=== PATIENT | female | born 1940 | race Caucasian/White ===

== ENCOUNTER 2022-09-27 18:32 | Inpatient (IN) | payer OTHER, MEDICARE ==
[~2022-09-27] VITALS: Ht 170.2 cm; Wt 65.8 kg
[2022-09-27 18:39] VITALS: BP_SYST 120
--- NOTE | 2022-09-27 18:44 | NUR ---
PT WAS B/B AMBULANCE FROM HOME FOR GENERALIZED WEAKNESS. PER SON, PT USUALLY ABLE TO WALK BUT SHE CAN'T WALK RECENTLY. PT ALERT, ORIENTED TO HER NAME ONLY, OTHERWISE CONFUSED. PT LOOKS LIKE WEAKNESS. SLIGHTLY CONGESTED. O2 SAT 77% IN RA. NC @3 SUPPLIED, MORNITOR ON.
[2022-09-27] MEDS ORDERED: ALBUTEROL SULFATE 0.083% 2.5 MG/3 ML VIAL.NEB INH ONE ×2 (19:14→20:00)
--- NOTE | 2022-09-27 19:31 | NUR ---
RECEIVED IN BED , ON FACE MASK , BP 149/90, HR98, RR26, O2SAT 93%,WILL CONTINUE TO MONITOR
[2022-09-27] MEDS ORDERED: FUROSEMIDE 40 MG/4 ML VIAL IVP ONE (19:45)
[2022-09-27] MEDS ORDERED: NS 250 ML IV ONE (19:45)
--- NOTE | 2022-09-27 20:15 | NUR ---
PATIENT OFF UNIT FOR CT HEAD
--- NOTE | 2022-09-27 20:16 | NUR ---
PATIENT BACK FROM CT
[2022-09-27 20:27] LABS: BASOPHILS # (AUTO) 0.1 K/uL (0.0-0.2); BASOPHILS % (AUTO) 0.8 % (0.0-2.0); EOSINOPHILS % (AUTO) 0.2 % (0.0-4.0); HEMATOCRIT 42.7 % (36-48); HEMOGLOBIN 14.1 g/dL (12.0-16.0); LYMPHOCYTES # (AUTO) 0.8 K/uL (1.0-5.5); LYMPHOCYTES % (AUTO) 6.9 % (20.5-51.5); MEAN CORPUSCULAR HEMOGLOBIN 31 pg (27-31); MEAN CORPUSCULAR HGB CONC 33 % (32-36); MEAN CORPUSCULAR VOLUME 93 fL (79.0-98.0); MONOCYTES # (AUTO) 0.5 K/uL (0.0-1.0); MONOCYTES % (AUTO) 4.6 % (1.7-9.3); NEUTROPHILS # (AUTO) 9.7 K/uL (1.8-7.7); NEUTROPHILS % (AUTO) 87.5 % (40.0-70.0); PLATELET COUNT (AUTO) 185 K/uL (130-430); RED BLOOD CELL COUNT(AUTO) 4.61 MIL/uL (4.2-6.2); RED CELL DISTRIBUTION WIDTH 15.8 % (9.0-15.0); WHITE BLOOD COUNT (AUTO) 11.1 K/uL (4.8-10.8)
[2022-09-27 20:33] LABS: ANION GAP 7 (5-15); CALCIUM 8.6 mg/dL (8.4-11.0); CHLORIDE 105 mmol/L (98-107); GLUCOSE 157 mg/dL (70-99); UREA NITROGEN, BLOOD 13 mg/dL (8-21)
[2022-09-27 20:46] LABS: ALANINE AMINOTRANSFERASE 16 U/L (12-78); ALBUMIN 3.5 g/dL (3.4-4.8); ASPARTATE AMINOTRANSFERASE 18 U/L (10-37); THYROID STIMULATING HORMONE 4.59 uIu/mL (0.34-4.82); TOTAL BILIRUBIN 0.8 mg/dL (0.0-1.0)
[2022-09-27] MEDS ORDERED: cefTRIAXone 2 GM VIAL ONE (20:46)
[2022-09-27] MEDS ORDERED: levETIRAcetam 1,000 MG IV BAG 100 ML IV ONE (21:00)
[2022-09-27] MEDS ORDERED: DEXAMETHASONE SOD PHOSPHATE 10 MG/ML VIAL IVP ONE (21:00)
[2022-09-27] MEDS ORDERED: MANNITOL 25% 12.5GM/50 ML VIAL IVP ONE (21:15)
[2022-09-27] MEDS ORDERED: ONDANSETRON HCL 4 MG/2 ML VIAL IVP PRN (23:00)
[2022-09-27 23:54] VITALS: BP_SYST 104
[2022-09-28 00:05] LABS: INR 1.1 (0.8-1.2); PROTHROMBIN TIME 11.4 SECS (9.5-12.5)
--- NOTE | 2022-09-28 02:00 | NUR ---
ROUNDS PATIENT IN BED, RESTING, EYES CLOSED, NO S/S OF ACUTE DISTRESS. BREATHING EVEN AND UNLABORED, HOB RAISED, NRB MASK ATTACHED PROPERLY ON 15L OF OXYGEN. BED ALARM ON. WILL CONTINUE TO MONITOR.
[2022-09-28] MEDS ORDERED: KCL 20 mEq in D5/0.45NS 1000mL 1,000 ML IV ONE (02:04)
[2022-09-28 02:19] VITALS: BP_SYST 104
[2022-09-28] MEDS: KCL 20 mEq in D5/0.45NS 1000mL 1,000 ML IV SCH ×3 (02:33→16:41)
--- NOTE | 2022-09-28 05:30 | NUR ---
INCONTINENT CARE PATIENT CLEANED BY NEUROPSYCHIATRIST. ALL NEEDS MET. WILL CONTINUE TO MONITOR .
--- NOTE | 2022-09-28 06:17 | NUR ---
CLOSING NOTE PATIENT IN BED, RESTING, NO S/S OF ACUTE DISTRESS NOTED. BREATHING IS EVEN AND UNLABORED. HOB RAISED, NRB MASK ATTACHED PROPERLY, ON 15L OF OXYGEN. IVF INFUSING WELL, IV SITE IS PATENT, NO SIGNS OF INFILTRATION OR INFECTION NOTED. ALL NEEDS MET THROUGHOUT SHIFT. FALL, SAFETY PRECAUTIONS MAINTAINED THROUGHOUT SHIFT. WILL CONTINUE TO MONITOR UNTIL PATIENT CARE IS ENDORSED TO ONCOMING DAYSHIFT NURSE.
[2022-09-28 06:42] LABS: BASOPHILS # (AUTO) 0.1 K/uL (0.0-0.2); BASOPHILS % (AUTO) 0.5 % (0.0-2.0); HEMATOCRIT 43.5 % (36-48); HEMOGLOBIN 14.2 g/dL (12.0-16.0); LYMPHOCYTES # (AUTO) 0.5 K/uL (1.0-5.5); LYMPHOCYTES % (AUTO) 4.1 % (20.5-51.5); MEAN CORPUSCULAR HEMOGLOBIN 30 pg (27-31); MEAN CORPUSCULAR HGB CONC 33 % (32-36); MEAN CORPUSCULAR VOLUME 93 fL (79.0-98.0); MONOCYTES # (AUTO) 0.9 K/uL (0.0-1.0); MONOCYTES % (AUTO) 7.6 % (1.7-9.3); NEUTROPHILS % (AUTO) 87.8 % (40.0-70.0); PLATELET COUNT (AUTO) 192 K/uL (130-430); RED BLOOD CELL COUNT(AUTO) 4.69 MIL/uL (4.2-6.2); RED CELL DISTRIBUTION WIDTH 15.7 % (9.0-15.0); WHITE BLOOD COUNT (AUTO) 12.5 K/uL (4.8-10.8)
[2022-09-28 07:09] LABS: ANION GAP 11 (5-15); CALCIUM 8.9 mg/dL (8.4-11.0); CHLORIDE 102 mmol/L (98-107); CREATININE 0.64 mg/dL (0.55-1.30); GLUCOSE 123 mg/dL (70-99); UREA NITROGEN, BLOOD 13 mg/dL (8-21)
[2022-09-28 08:00] VITALS: BP_SYST 114
[2022-09-28] MEDS: PANTOPRAZOLE SODIUM 40 MG/VIAL (PROTONIX) IVP SCH ×2 (09:22→20:45)
[2022-09-28 09:31] LABS: INR 1.1 (0.8-1.2); PROTHROMBIN TIME 11.3 SECS (9.5-12.5)
[2022-09-28] MEDS ORDERED: POTA-197 PO (10:44)
[2022-09-28] MEDS ORDERED: MEMA10TA PO (10:44)
[2022-09-28] MEDS ORDERED: MULT-1089 PO (10:44)
[2022-09-28] MEDS ORDERED: DONE10TA44 PO (10:44)
[2022-09-28] MEDS ORDERED: APIX2.5T PO (10:44)
[2022-09-28 11:46] VITALS: BP_SYST 104
[2022-09-28 16:41] VITALS: BP_SYST 109
--- NOTE | 2022-09-28 17:25 | NUR ---
pt remained nonverbal all day, ivf at 75ml/hr, iv was infiltrated and restarted to left arm. pt incontinent, skin washed, and kept clean and dry. turned pt q 2 hrs. all needs anticpated and met. sister at the bedside, updated on pt's condition. Dr Rebollar at the bedside at 10am, updated sister. orders noted and carried out. oral care provided.
--- NOTE | 2022-09-28 19:25 | NUR ---
Opening note Received resting in bed, eyes closed. Deep breaths noted, on Venturi mask at 35%. IVF infusing via IV to left hand. Bed is locked in lowest position, side rails up 3x, bed alarm on and call light w/in reach.
[2022-09-28 20:00] VITALS: BP_SYST 107
--- NOTE | 2022-09-28 20:50 | NUR ---
Med Scheduled med, Protonix, administered IVP as ordered. Patient provided with SCD's. Safety precautions in place.
[2022-09-28 22:39] VITALS: BP_SYST 111
--- NOTE | 2022-09-29 02:00 | NUR ---
rounds, patient care Patient had BM. She was provided with bed bath, pericare, new pad and linen.
[2022-09-29 02:45] VITALS: BP_SYST 126
--- NOTE | 2022-09-29 02:53 | NUR ---
Desaturating Patient continues to have deep respiration; now with lung sounds wet and gurgle. Desaturating SpO2 is 58%, RT increased Venturi to 50% and little improvement - 66%. RT performed Naso suction and connected her to NRB and presently saturation is 73% B/P 126/73, HR 92, resp 24 and 97.3 temporal scan. Latest oxygen saturation level is 86%.
[2022-09-29] MEDS: KCL 20 mEq in D5/0.45NS 1000mL 1,000 ML IV SCH ×2 (06:51→13:20)
--- NOTE | 2022-09-29 06:53 | NUR ---
Dr. Rebollar S/W Dr. Rebollar and updated on patient's status regarding saturation; Desaturated (now on NRB, at one point 93% and now sating at 84%). He provided new orders for IV fluid rate (50ml/hr).
[2022-09-29 08:00] VITALS: BP_SYST 124
--- NOTE | 2022-09-29 08:00 | NUR ---
Initial notes Not responding, on non rebreather mask at 15L, o2 sat from 87-91%. Sinus on the monitor. Repositioned for comfort.
[2022-09-29] MEDS: PANTOPRAZOLE SODIUM 40 MG/VIAL (PROTONIX) IVP SCH ×2 (08:17→22:45)
--- NOTE | 2022-09-29 11:00 | NUR ---
Notes- O2 sat is at 80% on mask, spoke to and made aware, MD said no need to put bipap, Respiratory therapist aware.
[2022-09-29 11:28] VITALS: BP_SYST 133
[2022-09-29] MEDS ORDERED: NALOXONE HCL 0.4 MG/ML AMP (NARCAN) IVP PRN (14:45)
--- NOTE | 2022-09-29 14:50 | NUR ---
MD ROUNDS Seen by Dr Rebollar and spoke to family at bedside. MD ordered morphine for comfort measures.
[2022-09-29] MEDS: MORPHINE 2 MG/ML INJ. SYRINGE IVP PRN ×3 (15:00→22:48)
[2022-09-29] MEDS: LevALBUTEROL HCL 1.25 MG/0.5 ML *CONC.* VIAL.NEB (XOPENEX CONC.) INH SCH ×2 (15:25→19:00)
[2022-09-29 15:27] VITALS: BP_SYST 143
--- NOTE | 2022-09-29 18:45 | NUR ---
closing notes Not responsive, o2 sat at 75%. family at bedside. patient is is comfort care. will endorse.
[2022-09-29 20:00] VITALS: BP_SYST 120
--- NOTE | 2022-09-30 00:15 | NUR ---
Patient non verbal Respirations are absent PUPILS FIXED & non Responsive not able to obtain Heart Rate also Not able to obtain a Blood Pressure skin also is cool to touch , patient is a DNR also FAMILY IS AT THE BEDSIDE , DR MEGHA OLMEDO also has been notified / .
--- NOTE | 2022-09-30 00:30 | NUR ---
DR CLEVELAND NOTIFIED OF PTS
--- NOTE | 2022-09-30 00:54 | NUR ---
PATIENT WAS PRONOUNCED AT 0013 WAS WITNESSED BY PRIMARY NURSE AND MARLO THE HIM ANALYST, POA AND SON WERE AT BEDSIDE. [employer] AND NOTIFIED.
== END 2022-09-30 00:54 | DRG 871 ==
LOC: SED 18:32 → STU 21:47
PROVIDERS: ADMIT Family Medicine; ATTEND Family Medicine
DX: A41.9 Sepsis, unspecified organism (principal); I61.1 Nontraumatic intracerebral hemorrhage in hemisphere, cortical; J18.9 Pneumonia, unspecified organism; I48.20 Chronic atrial fibrillation, unspecified; I10 Essential (primary) hypertension; Z66 Do not resuscitate; F03.90 Unspecified dementia, unspecified severity, without behavioral disturbance, psychotic disturbance, mood disturbance, and anxiety; D49.6 Neoplasm of unspecified behavior of brain; G93.89 Other specified disorders of brain; Z20.822 Contact with and (suspected) exposure to COVID-19
CPT/HCPCS: 36415; 36600; 70450-TC; 71045; 76376; 80048; 80053; 82550; 82803-TC; 83605; 83880; 84443; 84484; 85025; 85610-TC; 87040; 93005; 94640; 94760; 96365; 96375; 99285; C9113; G0378; J0696; J1940; J1953; J2270; J7612; J7613